=== PATIENT | female | born 2005 | race Caucasian/White ===

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

== ENCOUNTER → 2025-05-24 | Outpatient (CLI) | payer BC ==
[~2025-05-24] MED LIST changes: +Bactrim Ds Tab1 EACH PO; +DRAMAMINE25 M1 PO; +Norco 5-325 Ta1 EACH PO; +ONDA4ODT MM
== END | disposition home or self-care (01) ==
LOC: LAB 16:25 → LAB SHORT 16:25
DX: N23 Unspecified renal colic (principal)
CPT/HCPCS: 87086

== ENCOUNTER → 2025-06-13 | Outpatient (CLI) | payer BC ==
[2025-06-13 15:00] LABS: Candida Group, PCR NOT DETECTED (NOT DETECT); Candida glabrata-krusei, PCR NOT DETECTED (NOT DETECT)
[2025-06-13 18:33] LABS: Bacterial Vaginosis PCR Positive (NEGATIVE)
== END ==
LOC: LAB 12:57 → LAB SHORT 12:57
PROVIDERS: Registered Nurse Community Health
DX: N89.8 Other specified noninflammatory disorders of vagina (principal)
CPT/HCPCS: 81515

== ENCOUNTER → 2025-06-21 | Outpatient (CLI) | payer BC ==
[2025-06-21 16:56] LABS: Bilirubin, Urine Neg (Neg); Color, Urine Yellow (P-Yellow); Glucose Qualitative, Urine Neg (Neg); Ketones, Urine Neg (Neg); Leukocyte Esterase, Urine 2+ (Neg); Protein, Urine 2+ (Neg); Specific Gravity, Urine 1.015 (1.003-1.022); Urobilinogen, Urine NORM (Normal)
[2025-06-21 18:28] LABS: Bacterial Vaginosis PCR Negative (NEGATIVE); Candida Group, PCR NOT DETECTED (NOT DETECT); Candida glabrata-krusei, PCR NOT DETECTED (NOT DETECT)
[2025-06-23 13:30] LABS: APTIMA MEDIA TYPE Urine; C. TRACHOMATIS BY TMA Negative (Negative); N. GONORRHOEAE BY TMA Negative (Negative)
== END ==
LOC: LAB SHORT 16:42 → LAB 16:42
PROVIDERS: Family Medicine
DX: N89.8 Other specified noninflammatory disorders of vagina (principal); R31.0 Gross hematuria
CPT/HCPCS: 81001; 81515; 87491; 87591

== ENCOUNTER → 2025-07-31 | Outpatient (CLI) | payer BC ==
[2025-07-31 14:42] LABS: Microalbumin, Urine Quant. 66.1 mg/L (0.000-20.000); Protein, Urine Quantitative 20.9 mg/dL (0.0-11.9)
== END ==
LOC: LAB 08:20 → LAB SHORT 08:20
PROVIDERS: Internal Medicine Nephrology
DX: N18.30 Chronic kidney disease, stage 3 unspecified (principal); D63.1 Anemia in chronic kidney disease
CPT/HCPCS: 82043; 82570; 84156

== ENCOUNTER → 2025-08-30 | Outpatient (CLI) | payer BC ==
[2025-08-30 20:12] LABS: Candida Group, PCR NOT DETECTED (NOT DETECT); Candida glabrata-krusei, PCR NOT DETECTED (NOT DETECT)
[2025-08-30 20:13] LABS: Bacterial Vaginosis PCR Positive (NEGATIVE)
== END ==
LOC: LAB 16:27 → LAB SHORT 16:27
PROVIDERS: Family Medicine
DX: N89.8 Other specified noninflammatory disorders of vagina (principal); B96.89 Other specified bacterial agents as the cause of diseases classified elsewhere; N76.0 Acute vaginitis
CPT/HCPCS: 81515